=== PATIENT | male | born 1995 | race Caucasian/White ===

== ENCOUNTER 2019-04-07 05:06 | Emergency (ER) | payer SELFPAY ==
[~2019-04-07] VITALS: Ht 175.3 cm; Wt 90.9 kg
[2019-04-07 05:10] VITALS: Ht 175.3 cm; Wt 90.9 kg
[2019-04-07 05:58] LABS: BASOPHILS 0.2 % (0-2); EOSINOPHILS 1.5 % (0-7); HEMATOCRIT 47.7 % (42.0-54.0); HEMOGLOBIN 16.7 g/dL (13.5-17.5); IMMATURE GRANULOCYTES 0.6 % (0-5); MCH 30.9 pg (26.0-34.0); MCV 88.2 fL (80.0-100.0); MONOCYTES 8.2 % (2-11); NEUTROPHILS 49.5 % (40-80); PLATELET COUNT 260 10x3/uL (130-400); RBC 5.41 10x6/uL (4.20-6.10); RDW 12.2 % (11.5-14.5); WBC 10.7 10x3/uL (4.8-10.8)
[2019-04-07] MEDS ORDERED: FLOMAX0.4 MG PO (06:07)
[2019-04-07] MEDS ORDERED: ZOFRAN ODT4 MG/UDTAB PO (06:07)
[2019-04-07] MEDS ORDERED: HYDROCODON-ACE1 EA10 PO (06:07)
[2019-04-07 06:09] LABS: ANION GAP 12.7 mmol/L (8-16); CARBON DIOXIDE 27.8 mmol/L (21.0-32.0); CREATININE - SERUM 1.3 mg/dL (0.6-1.3); POTASSIUM - SERUM 3.5 mmol/L (3.5-5.1)
[2019-04-07 06:13] LABS: BILIRUBIN - TOTAL 0.84 mg/dL (0.2-1.3); PROTEIN - SERUM 7.6 g/dL (6.4-8.2)
[2019-04-07 06:46] VITALS: BP 149/79
[2019-04-07 06:51] LABS: APPEARANCE HAZY (CLEAR); BACTERIA FEW /hpf (NEGATIVE); BILIRUBIN NEGATIVE (NEGATIVE); COLOR DK YELLOW (YELLOW); EPITHELIAL CELLS OCC /hpf (0-5); GLUCOSE NEGATIVE (NEGATIVE); KETONE NEGATIVE (NEGATIVE); MUCUS <1+ /lpf (NONE SEEN); NITRITE NEGATIVE (NEGATIVE); PROTEIN TRACE mg/dL (NEGATIVE); RED CELLS - URINE 25-50 /hpf (0-5); SPECIFIC GRAVITY 1.025 (1.005-1.020); UROBILINOGEN NORMAL (NORMAL); WHITE CELLS - URINE RARE /hpf (NEGATIVE)
[2019-04-07 12:02] LABS: UDS - AMPHET NEGATIVE QUAL (NEGATIVE); UDS - BARB NEGATIVE QUAL (NEGATIVE); UDS - BENZO NEGATIVE QUAL (NEGATIVE); UDS - COCAINE NEGATIVE QUAL (NEGATIVE); UDS - OPIATE NEGATIVE QUAL (NEGATIVE); UDS - PCP NEGATIVE QUAL (NEGATIVE); UDS - THC NEGATIVE QUAL (NEGATIVE)
== END 2019-04-07 06:46 | disposition home or self-care (01) ==
LOC: D.ER 05:06
PROVIDERS: Family Medicine
DX: N20.1 Calculus of ureter (principal)